=== PATIENT | male | born 1970 | race Caucasian/White ===

== ENCOUNTER 2016-03-06 06:19 | Emergency (ER) | payer OTHER ==
[~2016-03-06] VITALS: Ht 182.9 cm; Wt 74.8 kg
[~2016-03-06 06:19] MED LIST: CARAFATE 1GM1000 MG PO; MAALOX ADVANCE355 ML PO; MOBIC 15MG15 MG PO; PEPCID20 MG PO; PRILOSEC OTC20 MG PO; VOLTAREN75 MG PO; ZOFRAN 4 MG TABL4 MG PO; ZOFRAN ODT4 MG PO
--- NOTE | 2016-03-06 07:23 | ED GENERAL ADULT ---
History of Present Illness General Chief Complaint: Shoulder Injury Stated Complaint: RIGHT SHOULDER PAIN/FALL S/P 03/05 Source: patient Exam Limitations: poor historian Allergies Coded Allergies: Penicillins (ALMOST A BABY 05/03/15) Reconcile Medications Meloxicam (Mobic 15MG) 15 MG TAB 1 TAB PO DAILY PRN PAIN/INFLAMMATION Triage Note: 45YO MALE TO TRIAGE W/CO R SHOULDER PAIN SP FALL LAST NIGHT. Triage Nurses Notes Reviewed? yes HPI: This is a 45-year-old, very anxious gentleman who presented to the [facility] emergency department with chief complaint of right shoulder pain status post fall. Patient reported right shoulder pain status post fall on 03/05/2016. He was using the stairs to come down and he fell down from the stairs and landed up on right shoulder. Pain was 7 out of 10, sharp, constant, nonradiating, non- relieved with Tylenol. He Is very anxious and irritated this morning. Offers no other complaints. (DEBBIE COTO MD) Vital Signs & Intake/Output Vital Signs & Intake/Output Vital Signs Date Time Temp Pulse Resp B/P Pulse O2 O2 Flow FiO2 Ox Delivery Rate 03/06 0751 86 136/84 03/06 0631 97 Room Air 03/06 0625 97.7 84 20 138/86 97 Room Air Past History Travel History Traveled to [place] past 21 day No Medical History Any Pertinent Medical History? 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 Yes (DEBBIE COTO MD) Review of Systems Review of Systems Constitutional: Denies: chills, diaphoresis, fever, malaise, weakness, unexplained weight loss. EENTM: Denies: no symptoms. Respiratory: Denies: cough, short of breath. Cardiovascular: Denies: chest pain. GI: Denies: constipation, diarrhea. Genitourinary: Denies: frequency, urgency. Musculoskeletal: Reports: joint pain. Skin: Denies: rash. (DEBBIE COTO MD) Physical Exam Core Measures ACS in differential dx? No CVA/TIA Diagnosis: No Severe Sepsis Present: No Septic Shock Present: No (DEBBIE COTO MD) Physical Exam General Appearance: well developed/nourished, alert, awake Head: atraumatic Eyes: Bilateral: normal appearance, PERRL, EOMI. Ears, Nose, Throat: normal pharynx, normal ENT inspection, hearing grossly normal Neck: normal inspection, supple, full range of motion Respiratory: normal breath sounds, chest non-tender, no respiratory distress Cardiovascular: regular rate/rhythm Peripheral Pulses: 2+ radial (R), 2+ radial (L) Gastrointestinal: normal bowel sounds, soft, non-tender Extremities: RIGHT SHOULDER PAIN Neurologic/Psych: no motor/sensory deficits, awake, alert, oriented x 3 Skin: intact, normal color, warm/dry (ELIER ANDRE MD) Progress Differential Diagnoses I considered the following diagnoses in my evaluation of the patient: Initial ED EKG: normal axis (DEBBIE COTO MD) Differential Diagnoses I considered the following diagnoses in my evaluation of the patient: [shoulder fracture, shoulder sprain] Plan of Care: Orders Procedure Date/time Status XRY-SHOULDER COMPLETE-RIGHT 03/06 723 Active Diagnostic Imaging: Viewed by Me: Radiology Read. Discussed w/RAD: Radiology Read. Initial ED EKG: none (ELIER ANDRE MD) Departure Departure Departure Forms: Customer Survey General Discharge Information (DEBBIE COTO MD) Departure Time of Disposition: 744 Disposition: HOME OR SELF CARE Condition: Stable Clinical Impression Primary Impression: Sprain of shoulder, right Referrals: PATIENT HAS NO PRIMARY CARE DR (PCP/Family) ELLI JEAN BAPTISTE,EMILIO Additional Instructions: Take Advil or Aleve as needed for pain. Please follow up with primary care doctor listed. Return to the ER for any changing or worsening symptoms. PA/IMPLEMENTATION ANALYST Co-Sign Statement Statement: ED Attending supervision documentation- [] I saw and evaluated the patient. I have also reviewed all the pertinent lab results and diagnostic results. I agree with the findings and the plan of care as documented in the PA's/IMPLEMENTATION ANALYST's documentation. [X] I have reviewed the ED Record and agree with the PA's/IMPLEMENTATION ANALYST's documentation. [] Additions or exceptions (if any) to the PAs/IMPLEMENTATION ANALYST's note and plan are summarized below: [] Resident Co-Sign Statement Statement: ED Attending supervision documentation- [x] I saw and evaluated the patient. I have also reviewed all the pertinent lab results and diagnostic results. I agree with the findings and the plan of care as documented in the Resident's documentation. [x] I have reviewed the ED Record and agree with the Resident's documentation. [] Additions or exceptions (if any) to the Resident's note and plan are summarized below: [] (JES JEAN BAPTISTE,ELIER) Critical Care Note Critical Care Note Critical Care Time: non-applicable (NNAMDI JEAN BAPTISTE,DEBBIE)
[2016-03-06 07:51] VITALS: BP 136/84
--- NOTE | 2016-03-06 08:02 | RADIOLOGY REPORT ---
EXAMINATION: XR SHOULDER, RIGHT CLINICAL INFORMATION: Right shoulder pain after a fall COMPARISON: None. TECHNIQUE: 4 views of the right shoulder FINDINGS: No acute fracture or dislocation. No significant degenerative findings. There is a laterally downsloping acromion. No focal osseous lesion or soft tissue calcification. IMPRESSION: No fracture.
== END 2016-03-06 07:51 ==
LOC: ERH 06:19
DX: S43.401A Unspecified sprain of right shoulder joint, initial encounter (principal); W10.9XXA Fall (on) (from) unspecified stairs and steps, initial encounter
CPT/HCPCS: 73030-RT

== ENCOUNTER 2016-04-23 00:16 | Emergency (ER) | payer OTHER ==
--- NOTE | 2016-04-23 00:39 | ED UPPER/LOWER EXTREMITY COMPL ---
History of Present Illness General Chief Complaint: Lower Extremity Injury Stated Complaint: FALL/LEFT LEG KNEE Source: patient Exam Limitations: no limitations Vital Signs & Intake/Output Vital Signs & Intake/Output Vital Signs Date Time Temp Pulse Resp B/P Pulse O2 O2 Flow FiO2 Ox Delivery Rate 04/23 0106 99.7 81 20 112/61 96 Room Air 04/23 0048 Room Air Allergies Coded Allergies: Penicillins (ALMOST A BABY 05/03/15) Reconcile Medications No Known Home Medications Triage Note: PT C/O LEFT KNEE PAIN. PT REPORTS FALLING DOWN THE STAIRS AND HURTING LEFT KNEE. PT PRESENTS WITH ABRASIONS IN LEFT LEG AND BANDAGE IN KNEE. PT BEING UNCOOPERTIVE. NOT LETTING THIS RN ASSESS KNEE. Triage Nurses Notes Reviewed? yes Onset: Abrupt Duration: hour(s): Timing: recent history Severity: moderate Pain/Injury Location: Left: Knee. Method of Injury: fall Modifying Factors: Improves With: rest. Worsens With: movement. Associated Symptoms: abrasion HPI: 45 yo gentleman presents after a fall where he scraped his left knee several hours ago. He notes no other injury. He notes that the skin has been scraped and that it hurts to walk. He is able to walk without problem. He is otherwise well. Past History Travel History Traveled to [place] past 21 day No Medical History Any Pertinent Medical History? 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 No Review of Systems Review of Systems Constitutional: Reports: no symptoms. EENTM: Reports: no symptoms. Respiratory: Reports: no symptoms. Cardiovascular: Reports: no symptoms. Gastrointestinal/Abdominal: Reports: no symptoms. Genitourinary: Reports: no symptoms. Musculoskeletal: Reports: no symptoms. Skin: Reports: no symptoms. Neurological/Psychological: Reports: no symptoms. Hematologic/Endocrine: Reports: no symptoms. Immunological: Reports: no symptoms. All Other Systems: Reviewed and Negative Physical Exam Physical Exam General Appearance: well developed/nourished, mild distress Head: atraumatic Eyes: Bilateral: normal appearance. Ears, Nose, Throat: normal pharynx, normal ENT inspection, hearing grossly normal Neck: normal inspection, supple Cardiovascular/Respiratory: regular rate/rhythm Back: normal inspection Leg Left: left knee with significant abrasion on patella and lateral aspect of knee. Ligaments are intact. Normal ROM. No deformity. Ecchymosis on medial thigh. Non tender. No sign of infection. Skin: intact, normal color, warm/dry Lymphatic: no anterior cervical cary Progress Differential Diagnosis: contusion, fracture, sprain, ABRASION VS OTHER Plan of Care: Orders Procedure Date/time Status XRY-KNEE COMPLETE LEFT 04/23 41 Active Diagnostic Imaging: Viewed by Me: Radiology Read. Discussed w/RAD: Radiology Read. Radiology Impression: left knee... tiny debris noted. small effusion. no fx. Comments: PATIENT: DOUG JAQUEZ PRESENT AGE: 45 PATIENT ACCOUNT NO: [id number] : 71 LOCATION: [facility] ORDERING PHYSICIAN: TERRI CORNELL MD SERVICE DATE: 04/23/16 EXAM TYPE: RAD - XRY-KNEE COMPLETE LEFT EXAMINATION: XR KNEE, LEFT CLINICAL INFORMATION: Left knee abrasion/contusion COMPARISON: None TECHNIQUE: Four views of the left knee. FINDINGS: Osseous alignment is anatomic. Joint spaces are maintained. There are several tiny radiopaque densities anterior to the patella and infrapatellar region, which may reflect debris. Osseous structures otherwise appear unremarkable. Associated soft tissue swelling is noted. Trace effusion is noted. IMPRESSION: Several tiny radiopaque densities anterior to the patella and infrapatellar region, which may reflect debris; tiny fracture fragments are considered less likely with this appearance. Soft tissue swelling in the infrapatellar region. Trace effusion. DICTATED BY: MARLENY CHANG MD DATE/TIME DICTATED:04/23/16116 DIGITAL PHOTOGRAPHER:CHIP DATE/TIME TRANSCRIBED:04/23/16116 CONFIDENTIAL, DO NOT COPY WITHOUT APPROPRIATE AUTHORIZATION. <Electronically signed in Other Vendor System> SIGNED BY: MARLENY CHANG MD 04/23/16124 Departure Departure Disposition: HOME OR SELF CARE Condition: Stable Clinical Impression Primary Impression: Contusion of left knee Secondary Impressions: Abrasion Referrals: PATIENT HAS NO PRIMARY CARE DR (PCP/Family) Departure Forms: Customer Survey General Discharge Information Prescriptions: Current Visit Scripts No Known Home Medications Comments pt states he had a tetanus shot <5 years ago. Bacitracin dressing on abrasions.
[2016-04-23 01:06] VITALS: BP 112/61
--- NOTE | 2016-04-23 01:25 | RADIOLOGY REPORT ---
EXAMINATION: XR KNEE, LEFT CLINICAL INFORMATION: Left knee abrasion/contusion COMPARISON: None TECHNIQUE: Four views of the left knee. FINDINGS: Osseous alignment is anatomic. Joint spaces are maintained. There are several tiny radiopaque densities anterior to the patella and infrapatellar region, which may reflect debris. Osseous structures otherwise appear unremarkable. Associated soft tissue swelling is noted. Trace effusion is noted. IMPRESSION: Several tiny radiopaque densities anterior to the patella and infrapatellar region, which may reflect debris; tiny fracture fragments are considered less likely with this appearance. Soft tissue swelling in the infrapatellar region. Trace effusion.
== END 2016-04-23 01:44 ==
LOC: ERH 00:16
DX: S80.02XA Contusion of left knee, initial encounter (principal); S80.212A Abrasion, left knee, initial encounter; W19.XXXA Unspecified fall, initial encounter
CPT/HCPCS: 73562-LT

== ENCOUNTER 2017-06-22 01:20 | Emergency (ER) | payer SELFPAY ==
--- NOTE | 2017-06-22 01:38 | ED GI/GU/ABDOMINAL COMPLAINT ---
History of Present Illness General Chief Complaint: Nausea, Vomiting, Diarrhea Stated Complaint: PT C/O N/V/D X'S "COUPLE DAYS" Source: patient, old records Exam Limitations: no limitations Vital Signs & Intake/Output Vital Signs & Intake/Output Vital Signs Date Time Temp Pulse Resp B/P B/P Pulse O2 O2 Flow FiO2 Mean Ox Delivery Rate 06/22 0155 Room Air 06/22 0131 98.0 84 20 139/89 96 Room Air Allergies Coded Allergies: Penicillins (ALMOST A BABY 06/22/17) Reconcile Medications No Known Home Medications Triage Note: TRIAGE: PATIENT TO ER FROM HOME REPORTING "STOMACH BOTHERING ME, DIARRHEA, CRAMPS, THROWING UP, I DON'T KNOW IF STRESS WILL DO THAT TO YOU," ONSET YESTERDAY. REPORTING PAIN TO UPPER MID ABDOMEN, INTERMITTENT. DENIES BLOOD IN VOMIT/ DIARRHEA. MD MELENDEZ EVALUATING PATIENT IN TRIAGE. Triage Nurses Notes Reviewed? yes HPI: Patient presents to the emergency department with a 2 day history of intermittent crampy epigastric abdominal pain associated with nausea vomiting diarrhea. Patient states the cramps will gradually come on and so really get worse was 7 out of 10. The cramps will last a few hours. The cramps decreased after he throws up or moves his bowels. There are no fevers or chills. There is no blood in his vomitus or stool. There is no radiation of the crampy abdominal pain. Patient denies any chest pain or shortness of breath. Past History Travel History Traveled to [place] past 21 day No Medical History Any Pertinent Medical History? 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 No Review of Systems Review of Systems Constitutional: Reports: no symptoms. EENTM: Reports: no symptoms. Respiratory: Reports: no symptoms. Cardiovascular: Reports: no symptoms. GI: Reports: see HPI, abdominal pain, diarrhea, nausea, vomiting. Genitourinary: Reports: no symptoms. Musculoskeletal: Reports: no symptoms. Skin: Reports: no symptoms. Neurological/Psychological: Reports: no symptoms. Hematologic/Endocrine: Reports: no symptoms. Immunologic/Allergic: Reports: no symptoms. All Other Systems: Reviewed and Negative Physical Exam Physical Exam General Appearance: well developed/nourished, alert, awake, anxious, mild distress Head: atraumatic, normal appearance Eyes: Bilateral: PERRL, EOMI. Ears, Nose, Throat, Mouth: hearing grossly normal, moist mucous membrane Neck: normal inspection, supple, full range of motion Respiratory: normal breath sounds, chest non-tender, no respiratory distress, lungs clear Cardiovascular: regular rate/rhythm, normal peripheral pulses Gastrointestinal: normal bowel sounds, soft, no organomegaly, tenderness, NO GUARDING OR REBOUND Back: normal inspection, normal range of motion Extremities: normal range of motion Neurologic/Psych: no motor/sensory deficits, awake, alert, oriented x 3, normal gait, normal mood/affect Skin: intact, normal color, warm/dry Core Measures ACS in differential dx? No Sepsis Present: No Sepsis Focused Exam Completed? No Progress Differential Diagnosis: AMI, biliary colic, cholecystitis, gastritis, hepatitis, ischemic bowel, inflamm bowel dis, pancreatitis Plan of Care: Orders Procedure Date/time Status TROPONIN LEVEL 06/22 134 Complete LIPASE 06/22 134 Complete COMPREHENSIVE METABOLIC PANEL 06/22 134 Complete CBC WITHOUT DIFFERENTIAL 06/22 134 Complete AMYLASE 06/22 134 Complete EKG 06/22 134 Active Laboratory Tests 06/22/17 0147: Anion Gap 13, Estimated GFR > 60, BUN/Creatinine Ratio 12.9, Glucose 90, Calcium 9.6, Total Bilirubin 1.1, AST 37, ALT 41, Alkaline Phosphatase 82, Troponin I < 0.01, Total Protein 7.5, Albumin 4.8, Globulin 2.7, Albumin/Globulin Ratio 1.8, Amylase 32, Lipase 41, CBC w Diff NO MAN DIFF REQ, RBC 4.84, MCV 96.1 H, MCH 33.2 H, MCHC 34.5, RDW 13.9, MPV 7.6, Gran % 60.4, Lymphocytes % 28.3, Monocytes % 8.9, Eosinophils % 1.6, Basophils % 0.8, Absolute Granulocytes 3.0, Absolute Lymphocytes 1.4, Absolute Monocytes 0.4, Absolute Eosinophils 0.1, Absolute Basophils 0 Initial ED EKG: NSR, no ST T wave changes Prior EKG: unchanged Comments: Patient is feeling much better. Patient has been updated on laboratory results. Highly unlikely that this is cardiac in origin given his diarrhea. Patient will follow up gastroenterology. Departure Departure Disposition: HOME OR SELF CARE Condition: Stable Clinical Impression Primary Impression: Upper abdominal pain, unspecified Secondary Impressions: Anxiety, Diarrhea, Vomiting Referrals: Bi JEAN BAPTISTE,Josue De León Patient Has No Primary Care Dr (PCP/Family) Additional Instructions: FOLLOW UP WITH GASTROENTEROLOGY RETURN IF SYMPTOMS WORSEN OR FOR ANY CONCERNS Departure Forms: Customer Survey General Discharge Information Prescriptions: Current Visit Scripts Ondansetron (Zofran Odt) 1 TAB SL TID PRN NAUSEA #10 TAB Alprazolam (Xanax) 1 TAB PO BIDP PRN ANXIETY #20 TAB
[2017-06-22 02:00] LABS: ABSOLUTE BASOPHIL COUNT 0 /CUMM (0.0-0.2); ABSOLUTE EOSINOPHIL COUNT 0.1 /CUMM (0.0-0.7); ABSOLUTE LYMPH COUNT 1.4 /CUMM (1.2-3.4); ABSOLUTE MONOCYTE COUNT 0.4 /CUMM (0.10-0.60); BASOPHIL % 0.8 % (0.0-2.0); EOSINOPHIL % 1.6 % (0-5); GRANULOCYTE % 60.4 % (42.2-75.2); HEMATOCRIT 46.5 % (42-52); MEAN CORPUSCULAR HGB 33.2 PG (27.0-31.0); MEAN CORPUSCULAR HGB CONC 34.5 G/DL (33.0-37.0); MEAN CORPUSCULAR VOLUME 96.1 FL (80.0-94.0); MEAN PLATELET VOLUME 7.6 FL (7.4-10.4); PLATELET COUNT 189 /CUMM (130-400); RBC DISTRIBUTION WIDTH 13.9 % (11.5-14.5); RED BLOOD CELL CT 4.84 /CUMM (4.70-6.10); WHITE BLOOD CELL COUNT 4.9 /CUMM (4.8-10.8)
[2017-06-22] MEDS ORDERED: ZOFRAN ODT4 M1 SL (02:55)
[2017-06-22] MEDS ORDERED: XANAX0.5 M1 PO (02:55)
[2017-06-22 03:08] VITALS: BP 124/76
== END 2017-06-22 03:09 ==
LOC: ERH 01:20
PROVIDERS: Emergency Medicine
DX: R10.13 Epigastric pain (principal); R11.2 Nausea with vomiting, unspecified; R19.7 Diarrhea, unspecified; F41.9 Anxiety disorder, unspecified
CPT/HCPCS: 93005; 93010; 96361; 96374; 96375; J1885; J2405

== ENCOUNTER 2017-10-20 01:54 | Emergency (ER) | payer OTHER ==
[~2017-10-20] VITALS: Ht 185.4 cm; Wt 81.6 kg
[~2017-10-20 01:54] MED LIST changes: +XANAX0.5 M1 PO; +ZOFRAN ODT4 M1 SL
--- NOTE | 2017-10-20 03:55 | ED UPPER/LOWER EXTREMITY COMPL ---
History of Present Illness General Chief Complaint: Foot or Ankle Injury Stated Complaint: FOOT INJURY AT WORK Source: patient Exam Limitations: no limitations Vital Signs & Intake/Output Vital Signs & Intake/Output Vital Signs Date Time Temp Pulse Resp B/P B/P Pulse O2 O2 Flow FiO2 Mean Ox Delivery Rate 10/20 525 98.8 57 18 147/76 96 Room Air 10/20 0331 97 Room Air 10/20 0328 98.7 58 18 151/80 96 Room Air Allergies Coded Allergies: Penicillins (ALMOST A BABY 06/22/17) Reconcile Medications Alprazolam (Xanax) 0.5 MG TABLET 1 TAB PO BIDP PRN ANXIETY Ondansetron (Zofran Odt) 4 MG TAB.RAPDIS 1 TAB SL TID PRN NAUSEA Triage Note: PT FROM HOME C/O OF "RAN OVER MY TOES WITH A KAITLYNN AT WORK" PT STATES HE WAS PULLING A PALLET AND THE KAITLYNN BECAME CLOSE TO PTS RIGHT GREAT TOE CRUSHING IT. PT STATES BLEEDING, BLEEDING CONTROLLED PRIOR TO ARRIVAL. PT STATES 7/10 PAIN. Triage Nurses Notes Reviewed? yes Onset: Abrupt Duration: hour(s): Timing: recent history Severity: moderate Pain/Injury Location: Right: 1st toe. Method of Injury: crush injury Modifying Factors: Improves With: rest. Associated Symptoms: partial avulsion of right great toe HPI: 47 yo gentleman presents after a crush injury on his right great toe. He notes that he was at work when a kaitlynn ran over his right great toe. He notes no other injury. His toenail partially has lifted off. He notes only minimal tenderness to palpation of toe. He is able to move the toe. He is otherwise well. Past History Travel History Traveled to [place] past 21 day No Medical History Any Pertinent Medical History? 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 No Review of Systems Review of Systems Constitutional: Reports: no symptoms. EENTM: Reports: no symptoms. Respiratory: Reports: no symptoms. Cardiovascular: Reports: no symptoms. Gastrointestinal/Abdominal: Reports: no symptoms. Genitourinary: Reports: no symptoms. Musculoskeletal: Reports: no symptoms. Skin: Reports: no symptoms. Neurological/Psychological: Reports: no symptoms. Hematologic/Endocrine: Reports: no symptoms. Immunological: Reports: no symptoms. All Other Systems: Reviewed and Negative Physical Exam Physical Exam General Appearance: well developed/nourished, mild distress Head: atraumatic Ears, Nose, Throat: normal pharynx, normal ENT inspection Neck: normal inspection, supple, full range of motion Cardiovascular/Respiratory: no respiratory distress Back: normal inspection Shoulder Left: normal inspection Shoulder Right: normal inspection Foot Right: great toe with partial nail avulsion. no significant tenderness to palpation of toe. no deformity. light touch and strength intact. Progress Differential Diagnosis: contusion, dislocation, fracture, sprain, crush injury Plan of Care: Orders Procedure Date/time Status XRY-TOES, RIGHT 10/20 358 Active Diagnostic Imaging: Viewed by Me: Radiology Read. Discussed w/RAD: Radiology Read. Radiology Impression: PATIENT: DOUG JAQUEZ PRESENT AGE: 47 PATIENT ACCOUNT NO: [id number] : 71 LOCATION: [facility] ORDERING PHYSICIAN: Larry Mann MD SERVICE DATE: 10/20/17 EXAM TYPE: RAD - XRY-TOES, RIGHT EXAMINATION: XR TOES, RIGHT CLINICAL INFORMATION: Right first digit confusion. COMPARISON: None TECHNIQUE: AP view of the right foot is provided along with 2 views of the first digit. FINDINGS: There is soft tissue swelling to the first digit. There are no fractures or dislocations. There are no radiopaque foreign bodies. IMPRESSION: No acute fracture. Mild soft tissue swelling about the first digit. DICTATED BY: Guy Lacy MD DATE/TIME DICTATED:10/20/17424 TOW PICKER:CHIP DATE/ TIME TRANSCRIBED:10/20/17424 CONFIDENTIAL, DO NOT COPY WITHOUT APPROPRIATE AUTHORIZATION. <Electronically signed in Other Vendor System> SIGNED BY: Guy Lacy MD 10/20/17428 Departure Departure Disposition: HOME OR SELF CARE Condition: Stable Clinical Impression Primary Impression: Crush injury of toe Secondary Impressions: Nail avulsion of toe Referrals: Patient Has No Primary Care Dr (PCP/Family) Departure Forms: Industrial Accident Report Comments discussed at length... he would like to go back to work. xray shows no fx. he is safe for discharge.
--- NOTE | 2017-10-20 04:29 | RADIOLOGY REPORT ---
EXAMINATION: XR TOES, RIGHT CLINICAL INFORMATION: Right first digit confusion. COMPARISON: None TECHNIQUE: AP view of the right foot is provided along with 2 views of the first digit. FINDINGS: There is soft tissue swelling to the first digit. There are no fractures or dislocations. There are no radiopaque foreign bodies. IMPRESSION: No acute fracture. Mild soft tissue swelling about the first digit.
[2017-10-20 05:26] VITALS: BP 147/76
== END 2017-10-20 05:29 ==
LOC: ERH 01:54
DX: S97.111A Crushing injury of right great toe, initial encounter (principal); W23.0XXA Caught, crushed, jammed, or pinched between moving objects, initial encounter; Y92.89 Other specified places as the place of occurrence of the external cause; Y93.89 Activity, other specified
CPT/HCPCS: 73660-RT